=== PATIENT | female | born 1995 | race American Indian/Alaskan Native ===

== ENCOUNTER 2024-08-14 12:42 | Outpatient (CLI) | payer OTHER, MEDICAID, SELFPAY ==
--- NOTE | ~2024-08-14 | US_ITS ---
EXAMINATION: US FNA w image guidance DATE: 08/14/2024 13:49 INDICATION: Nontoxic single thyroid nodule. TECHNIQUE: The procedure and its benefits and risks were discussed with the patient. Risks specifically discusse d included bleeding. The patient verbalized understanding of the risks and agreed to proceed. The nec k was prepped and draped in the usual sterile manner. 1% lidocaine was used for local anesthesia. S ix passes were made with a 25G needle into the lesion under ultrasound guidance. There were no immed iate complications. FINDINGS: Grayscale ultrasound images demonstrate needles advanced into a 3.4 cm nodule in right thyroid lobe f or biopsy. IMPRESSION: 1. Ultrasound-guided fine needle aspiration of a right thyroid nodule. Reviewed, dictated and finalized at location A. PROCESSOR
== END 2024-08-14 12:43 | disposition home or self-care (01) ==
DX: E04.1 Nontoxic single thyroid nodule (principal)
CPT/HCPCS: 10005; 88172; 88173; 88305

== ENCOUNTER 2025-07-15 16:10 | Emergency (ER) | payer OTHER, MEDICAID, SELFPAY ==
--- NOTE | 2025-07-15 16:19 | ED.GENADULT ---
HPI - General Adult General Chief complaint: Wound/Laceration Stated complaint: dog bite Time Seen by Provider: 07/15/25 16:19 Source: patient Mode of arrival: ambulatory Limitations: no limitations History of Present Illness HPI narrative: 29-year-old female patient presents to [facility] with complaints a puncture wounds to the right hand after being bit by dog approximately 30 minutes prior to arrival today. Patient unaware of when her last tetanus shot was. Related Data Home Medications ?Medication ?Instructions ?Recorded ?Confirmed ?Last Taken ?Type levothyroxine 150 mcg tablet mcg 07/15/25 Unknown History Allergies Allergy/AdvReac Type Severity Reaction Status Date / Time morphine AdvReac Other Verified 07/15/25 16:32 Review of Systems Review of Systems: CONSTITUTIONAL: Denies fever, chills, or sweats. EYES: Denies visual changes, redness, or discharge. ENT: Denies rhinorrhea, congestion, sore throat, or otalgia. CARDIOVASCULAR: Denies chest pain, palpitations, or edema. RESPIRATORY: Denies cough or dyspnea. GASTROINTESTINAL: Denies abdominal pain, nausea, vomiting, or diarrhea. GENITOURINARY: Denies dysuria or hematuria. SKIN: Denies rash or itching. Positive dog bite to right hand MUSCULOSKELETAL: Denies back pain, joint pain, or myalgia. NEUROLOGIC: Denies headache, numbness, or weakness. PSYCHIATRIC: Denies anxiety or depression. [facility] Past Medical History Medical History (Updated 07/15/25 @ 16:43 by Carmen Wright, KRUPA) No significant past medical history Comments At the time of my signature I agree with nursing past medical history, surgical, social, and family history. There is no relevant family history pertinent to the presenting complaint. Exam Narrative: GENERAL: Well-appearing, well-nourished, and in no acute distress. HEAD: Normocephalic, atraumatic. EYES: PERRLA and EOMI. ENT: Nares clear, no rhinorrhea or epistaxis. Mucous membranes moist. NECK: Supple. No lymphadenopathy CHEST: Clear to auscultation. No respiratory distress. HEART: Regular rate and rhythm. No murmur heard. Normal peripheral pulses. ABDOMEN: Soft, nontender, nondistended, normal active bowel sounds. EXTREMITIES: Normal range of motion. No edema. SKIN: Warm, dry, no rash. Patient has proximally 3 puncture wounds noted to right dorsal hand. Bleeding is controlled. 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 NEURO: No focal deficits. Alert and oriented x3. Course Course Level of Care: Express Care Visit Vital Signs Vital signs: Vital Signs Temperature 37.2 C 07/15/25 16:20 Pulse Rate 98 07/15/25 16:20 Respiratory Rate 20 07/15/25 16:20 Blood Pressure 148/89 H 07/15/25 16:20 Pulse Oximetry 100 07/15/25 16:20 Oxygen Delivery Room Air 07/15/25 16:20 Temperature 37.2 C 07/15/25 16:20 Pulse Rate 98 07/15/25 16:20 Respiratory Rate 20 07/15/25 16:20 Blood Pressure 148/89 H 07/15/25 16:20 Pulse Oximetry 100 07/15/25 16:20 Oxygen Delivery Room Air 07/15/25 16:20 Vital signs reviewed. The patient has been informed that they may have pre-hypertension or Hypertension based on a BP reading in the department. I recommend that the patient call the primary care provider listed on their discharge instructions or a physician of their choice this week to arrange follow up for further evaluation of possible pre-hypertension or Hypertension Medical Decision Making MDM Narrative Medical decision making narrative: Plan of care patient is to irrigate the wounds in the clinic today we will also update her tetanus shot send her home with oral antibiotics for the dog bite. Differential Diagnosis Differential Diagnosis: Differential diagnosis: Abscess, cellulitis, hidradenitis, laceration, puncture wound. Simple, intermediate, or complex laceration. Vital Signs Vital Signs: Vital Signs Temperature 37.2 C 07/15/25 16:20 Pulse Rate 98 07/15/25 16:20 Respiratory Rate 20 07/15/25 16:20 Blood Pressure 148/89 H 07/15/25 16:20 Pulse Oximetry 100 07/15/25 16:20 Oxygen Delivery Room Air 07/15/25 16:20 Temperature 37.2 C 07/15/25 16:20 Pulse Rate 98 07/15/25 16:20 Respiratory Rate 20 07/15/25 16:20 Blood Pressure 148/89 H 07/15/25 16:20 Pulse Oximetry 100 07/15/25 16:20 Oxygen Delivery Room Air 07/15/25 16:20 Critical Care Time Critical Care Time Critical Care Time: No Discharge Plan Discharge Clinical Impression: Dog bite of right hand Patient Disposition: Home Condition: Stable Instructions: Antibiotic Form, Animal Bite (ED) Additional Instructions: Normal bites can cause infection. Teeth carried germs into the skin. Sometimes these wounds should be closed, especially on the face, but is usually better to let it heal on its own because this decreases the chance of infection. Call your doctor or return to the emergency department if patient worsens or: Fever occurs. Redness or swelling occurs near the wound. Pus found in the wound. Chills, nausea, or vomiting occur. Pain is worse. Joints become painful. Keep the wound clean. She was soap and water. Tetanus shots: Everyone should have a tetanus shot every 5-10 years. He received a tetanus shot today, be sure to tell your primary care doctor about this to update your shot record. Some tetanus shots are combination shots, such as tetanus-diphtheria (Td), or tetanus- diphtheria- pertussis (Tdap). Tell your primary doctor which when you received. If you're not sure about her tetanus status, her doctor's office tomorrow to find out whether you need a booster shot. Rabies: If you need shots to prevent rabies, you will need several shots. He might need to report this to animal control or the local police. These refer to the deep provided to you at check in regards to the rabies shots. Patient Language: Faroese Prescriptions: New amoxicillin-pot clavulanate 875-125 mg tablet 1 tablet PO Q12H 7 Days Qty: 14 0RF No Action levothyroxine 150 mcg tablet Follow-up/Referrals: Toan,Odalis Olsen, VISITOR SERVICES INFORMATION ASSISTANT [Primary Care Provider, Unknown] Time of Disposition: 16:42
[2025-07-15 16:20] VITALS: BP 148/89; PULSE 98; RESP 20; TEMP 37.2; O2SAT 100
[2025-07-15] MEDS: TETANUS,DIPHTHERIA,AC PERTUSSIS ADULT (0.5 ML) BOOSTRIX IM (16:44)
== END 2025-07-15 16:59 | disposition home or self-care (01) ==
PROVIDERS: Emergency Provider Nurse Practitioner Family
DX: S61.431A Puncture wound without foreign body of right hand, initial encounter (principal); W54.0XXA Bitten by dog, initial encounter; Z23 Encounter for immunization
CPT/HCPCS: 90471; 90715; 99203; G0463